=== PATIENT | female | born 1980 | race American Indian/Alaskan Native ===

== ENCOUNTER 2016-06-15 06:40 | Day surgery (SDC) | payer OTHER ==
[2016-06-12 12:13] LABS: Basophils % (Auto) 2.1 % (0.0-1.8); Eosinophils % (Auto) 3.6 % (0.0-4.3); Hematocrit 34.8 % (30.3-42.9); Hemoglobin 11.3 gm/dl (10.1-14.3); Mean Corpuscular HGB Conc 33 % (30-34); Mean Corpuscular Hemoglobin 27 pg (28-32); Mean Corpuscular Volume 83 fl (79-97); Platelet Count 333 K/mm3 (140-440); Red Blood Count 4.17 M/mm3 (3.65-5.03); Red Cell Distribution Width 13.8 % (13.2-15.2); White Blood Count 5.8 K/mm3 (4.5-11.0)
[2016-06-12 12:23] LABS: Anion Gap 13 mmol/L; BUN/Creatinine Ratio 12.85; Blood Urea Nitrogen 9 mg/dL (7-17); Calcium 8.6 mg/dL (8.4-10.2); Carbon Dioxide 26 mmol/L (22-30); Chloride 101.7 mmol/L (98-107); Glucose 89 mg/dL (65-100); Sodium 138 mmol/L (137-145)
[2016-06-12 12:32] LABS: Potassium 2.9 mmol/L (3.6-5.0)
--- NOTE | 2016-06-12 12:47 | Anesthesia Consultation ---
Anesthesia Consult and Med Hx Date of service: 06/12/16 - Airway Anesthetic Teeth Evaluation: Good ROM Head & Neck: Adequate Mental/Hyoid Distance: Adequate Mallampati Class: Class II Intubation Access Assessment: Probably Good - Pulmonary Exam CTA: Yes (blbs clear) - Cardiac Exam Cardiac Exam: RRR - Pre-Operative Health Status ASA Pre-Surgery Classification: ASA2 Proposed Anesthetic Plan: General (bonded front teeth) - Pulmonary Hx Smoking: Yes - Cardiovascular System Hx Hypertension: Yes (since 03/2016) - Central Nervous System Hx Psychiatric Problems: No - Hematic Hx Anemia: Yes - Other Systems Hx Alcohol Use: Yes (occas) Hx Cancer: No
[~2016-06-15 06:40] MED LIST: DILAUDID IV PRN; NACL 0.9% 1000 ML 1,000 ML IV SCH; PEPCID PO NR; SUBLIMAZE IV PRN; VERSED IV NR; ZOFRAN IV PRN
[2016-06-15] MEDS ORDERED: NACL BACTERIOSTATIC INFILTRATI ONE (06:54)
[2016-06-15] MEDS ORDERED: NORCO 5/325 PO PRN (07:14)
[2016-06-15] MEDS ORDERED: ZOFRAN IV PRN (07:14)
--- NOTE | 2016-06-15 07:18 | Short Stay Summary ---
Short Stay Documentation Date of service: 06/15/16 Narrative H&P: 36y/o with dysfunctional uterine bleeding. Ultrasound demonstrated small myomas. The patient has not responded well to medical management for her vaginal bleeding. - History Principal diagnosis: dysfunctional uterine bleeding H&P: obtained from office Past Medical History: hypertension Past Surgical History: Social history: - Allergies and Medications Current Medications: Allergies Penicillins Allergy (Verified 06/08/16 13:16) Itching Home Medications Medication Instructions Recorded Confirmed Last Taken Type Hydrochlorothiazide [Hctz] 12.5 mg PO QDAY 06/08/16 06/08/16 Unknown History Ibuprofen [Motrin] 600 mg PO Q8H PRN 06/08/16 06/08/16 Unknown History Vit-Fe Fumar-FA [ 1 tab PO QDAY 06/08/16 06/08/16 Unknown History Vitamin] Active Medications Acetaminophen/Hydrocodone Bitart ([place] 5/325) 2 each PO ONCE PRN PRN Reason: Pain, Moderate (4-6) Stop: 06/15/16 07:15 Famotidine (Pepcid) 20 mg PO PREOP NR Hydromorphone HCl (Dilaudid) 0.5 mg IV Q10MIN PRN PRN Reason: Pain , Severe (7-10) Stop: 06/18/16 07:15 Sodium Chloride (Nacl 0.9% 1000 Ml) 1,000 mls @ 100 mls/hr IV DIRECT CRISS Last Admin: 06/15/16 07:09 Dose: 100 mls/hr Midazolam HCl (Versed) 2 mg IV PREOP NR Stop: 06/15/16 23:59 Ondansetron HCl (Zofran) 4 mg IV ONCE PRN PRN Reason: Nausea And Vomiting Stop: 06/15/16 07:15 - Physical exam General appearance: no acute distress Integumentary: no rash HEENT: Atraumatic Lungs: Clear to auscultation Breasts: deferred Heart: Regular rate Gastrointestinal: normal Female Genitourinary: deferred Rectal Exam: deferred - Brief post op/procedure progress note Date of procedure: 06/15/16 Pre-op diagnosis: dysfunctional uterine bleeding Post-op diagnosis: same Procedure: Hysteroscopy Endometrial ablation via NovaSure Anesthesia: GETA Surgeon: PRANAV DUENAS Estimated blood loss: minimal Pathology: none - Hospital course Hospital course: The patient was admitted the day of surgery and underwent a hysteroscopy and NovaSure. Please see operative note for details of surgery. Postoperative course was uneventful. Patient was discharged home when she met discharge criteria. - Disposition Condition at discharge: Good Disposition: DISCHARGED TO HOME OR SELFCARE Short Stay Discharge Plan Activity: other (pelvic rest for 2 weeks) Diet: regular Additional Instructions: Follow-up is not required Follow-up as needed Prescriptions: Ibuprofen [Motrin] 800 mg PO Q8HR PRN #60 tablet PRN Reason: Pain oxyCODONE /ACETAMINOPHEN [Percocet 5/325] 1 tab PO Q6HR PRN #30 tablet PRN Reason: Pain
[2016-06-15] MEDS ORDERED: DIPRIVAN 10 MG/ML IV ONE (07:24)
[2016-06-15] MEDS ORDERED: XYLOCAINE MPF 2% ONE (07:25)
[2016-06-15] MEDS ORDERED: DECADRON ONE (07:25)
[2016-06-15] MEDS ORDERED: SUBLIMAZE ONE (07:25)
[2016-06-15] MEDS ORDERED: PEPCID PO NR (08:00)
--- NOTE | 2016-06-15 08:03 | Anesthesia Day of Surgery ---
Anesthesia Day of Surgery - Day of Surgery Patient Examined: Yes Patient H&P Reviewed: Yes Patient is NPO: Yes
[2016-06-15] MEDS ORDERED: SILVER NITRATE TP ONE ×2 (08:17→09:50)
[2016-06-15] MEDS ORDERED: NACL 0.9% IR ONE ×2 (09:31)
[2016-06-15] MEDS ORDERED: ZOFRAN ONE (09:44)
[2016-06-15] MEDS ORDERED: TORADOL ONE (09:44)
--- NOTE | 2016-06-15 10:03 | Operative Report ---
Operative Report Operative Report: Date of procedure: 06/15/2016 Pre-operative diagnosis: Dysfunctional uterine bleeding Post-operative diagnosis: Same as above Procedure name(s): Hysteroscopy; endometrial ablation via NovaSure Surgeon: Marie Greenwood M.D. Music Director: None Anesthesia: General endotracheal anesthesia Findings thickened endometrium with a small posterior myoma Indication: 36-year-old 112 with a history of dysfunctional uterine bleeding. Procedure The patient was taken to the operating room and given general tracheal anesthesia without complication. The patient was prepped and draped in a normal sterile fashion. A bivalve speculum was placed in the patient's vagina single-tooth tenaculums placed on the anterior lip of the cervix. The cervical os was dilated with graduated dilators. A uterine sound was inserted. The hysteroscope was then placed. Insufflation of the uterine cavity was performed with normal saline. Gen. survey of the uterine cavity revealed thickened endometrium with a small posterior myoma. The hysteroscope was then removed. The NovaSure device was then inserted. The endometrial length was 6 cm and the uterine width was 3.4 cm. The device was engaged and it passed the surveillance of the uterine cavity. The NovaSure device was then deployed with a energy of 112 W that lasted for 57 seconds. The NovaSure device was then removed. The hysteroscope was again reinserted. There was evidence of charring of the endometrial surface. The remainder of the vaginal instruments were then removed atraumatically. The patient was then successfully extubated taken to the recovery room. All sponge laps and needle counts were correct 2.
[2016-06-15] MEDS: DILAUDID IV PRN ×4 (10:15→10:45)
--- NOTE | 2016-06-15 10:33 | Post Anesthesia Evaluation ---
- Post Anesthesia Evaluation Patient Participated: Yes Airway Patent: Yes Stable Respiratory Function: Yes Nausea/Vomiting: No Temp > 96.8F: Yes Pain Manageable: Yes Adequeate Hydration: Yes Anesthesia Complications: No
[2016-06-15] MEDS ORDERED: LOPRESSOR IV PRN (10:36)
[2016-06-15 12:05] VITALS: BP 147/86
== END 2016-06-15 12:10 | disposition home or self-care (01) ==
LOC: OR 06:40
PROVIDERS: ATTEND Obstetrics & Gynecology
DX: D25.9 Leiomyoma of uterus, unspecified (principal); I10 Essential (primary) hypertension; D64.9 Anemia, unspecified; F17.210 Nicotine dependence, cigarettes, uncomplicated; Z79.899 Other long term (current) drug therapy; Z72.89 Other problems related to lifestyle
CPT/HCPCS: 36415; 58563; 80048; 84132; 84703; 85025; A4217; J1100; J1170; J1885; J2250; J2405; J2704; J3010; J7030